=== PATIENT | female | born 1970 | race Caucasian/White ===

== ENCOUNTER → 2021-04-23 08:45 | Outpatient (CLI) | payer OTHER, SELFPAY ==
--- NOTE | ~2021-04-23 | XR_ITS ---
EXAMINATION: XR knee LT 3V DATE: 04/23/2021 09:08 INDICATION: Left knee pain. TECHNIQUE: 3 views of left knee including standing views were obtained. COMPARISON: None. FINDINGS: Bone alignment is normal. No fracture. There is mild osteoarthritis of medial and patellofe moral compartments characterized by tiny marginal osteophytes. No joint space narrowing. No knee join t effusion. There is heterotopic ossification lateral to lateral femoral condyle. IMPRESSION: 1. Mild left knee osteoarthritis. Reviewed, dictated and finalized at location B. TE[employer] SUPER[employer]OR [employer]
== END ==
PROVIDERS: PCP Family Medicine; Visit Provider Nurse Practitioner Family
DX: M17.12 Unilateral primary osteoarthritis, left knee (principal)
CPT/HCPCS: 73562

== ENCOUNTER 2021-09-04 15:57 | Outpatient (CLI) | payer OTHER, SELFPAY ==
--- NOTE | 2021-09-04 16:15 | ECG_ITS ---
Measurements Intervals [place] Rate: 60 P: 42 OH: 157 QRS: 21 QRSD: 86 T: 42 QT: 395 QTc: 395 Interpretive Statements SINUS RHYTHM BASELINE WANDER- I, II, AVR, AVL, AVF, V1-V6 NORMAL ECG Electronically Signed On 09-04-2021 19:01:39 CDT by Arthur Borden D.O.
[2021-09-04 16:16] LABS: Basophils Percent Auto 0.5 % (0.2-1.2); Eosinophils Absolute Auto 0.1 K/mm3 (0-0.3); Eosinophils Percent Auto 1.3 % (0-4.4); Hematocrit 43.3 % (37.0-47.0); Hemoglobin 14.7 g/dL (12.0-15.0); Immature Granulocyte Absolute 0.01 K/mm3 (0.00-0.031); Immature Granulocyte Percent A 0.2 % (0-0.5); Lymphocytes Absolute Auto 2.23 K/mm3 (0.9-3.2); Lymphocytes Percent Auto 36.7 % (18.3-44.2); Mean Corpuscular HGB Conc 33.9 g/dl (32-36); Mean Corpuscular Hemoglobin 31.8 pg (26-34); Mean Corpuscular Volume 93.7 fl (80-100); Mean Platelet Volume 10.4 fl (7.4-10.4); Monocytes Absolute Auto 0.5 K/mm3 (0.1-0.6); Monocytes Percent Auto 7.7 % (2.6-8.5); Neutrophils Absolute Auto 3.3 K/mm3 (1.3-6.7); Neutrophils Percent Auto 53.6 % (45.5-73.1); Platelet Count Result 264 k/mm3 (150-375); Red Blood Count 4.62 M/mm3 (4.2-5.4); Red Cell Distribution Width 13.4 % (11.5-14.5); White Blood Count 6.1 K/mm3 (4.5-10.0)
[2021-09-04 16:32] LABS: Anion Gap 4 mmol/L (8-16); Blood Urea Nitrogen 18 mg/dL (7-17); Calcium 9.7 mg/dL (8.4-10.2); Carbon Dioxide 26 mmol/L (22-30); Chloride 104 mmol/L (98-107); Estimated Glomerular Filt Rate > 60; Glucose 98 mg/dL (65-110); Potassium 4.5 mmol/L (3.4-5.0); Sodium 134 mmol/L (137-145)
== END 2021-09-04 15:58 | disposition home or self-care (01) ==
PROVIDERS: PCP Family Medicine; Visit Provider Nurse Practitioner Family
DX: M25.562 Pain in left knee (principal); R03.0 Elevated blood-pressure reading, without diagnosis of hypertension
CPT/HCPCS: 36415; 80048; 85025; 93005

== ENCOUNTER 2021-09-06 01:02 | Day surgery (SDC) | payer OTHER, SELFPAY ==
[2021-09-02 10:09] VITALS: BMI 34.7
--- NOTE | 2021-09-02 10:16 | PC.NURSE ---
Report to the Outpatient Waiting Room, entrance under the green pavilion located off [facility], at time _1000_ on date _09-06-21_. OR Time: _1200__. - You and your visitor will be asked a series of questions to screen for COVID 19 for your protection. - Only one visitor is allowed at this time. - The patient visitor is requested to leave or wait in car when not with patient. - A mask is required within the hospital. Patients may have clear liquids (water, carbonated beverages, clear teas, apple juice) until 3 hours prior to surgery with a maximum of 20 ounces. - No food from midnight until time of surgery Take the following medications with a SIP of water the morning of surgery: None Medications to discontinue per physician Date to take last dose Please no make-up, nail welsh, hairspray, perfume, deodorant, or body powder the day of surgery. No jewelry (including any body piercings) or valuables the day of surgery, leave them at home. Please take a shower or bath the night before, or the morning of, surgery with an antibacterial soap. Wear comfortable, loose fitting clothing. Children are encouraged to wear pajamas. - Jewelry must be removed prior to entering the operating room. Rings and piercings that are not removed may be cut off. - The hospital will not accept responsibility for valuables. - Please leave all valuables, including medications, at home the day of surgery. If you are going home after surgery, a licensed local company hazmat driver must drive you home. - NO public transportation without another adult. - We recommend that an adult stay with you for 24 hours following discharge. - We also recommend that you do not drive, make important decision, drink alcoholic beverages, or take any drugs that were not prescribed by your health care provider for at least 24 hours after your discharge time. Follow any additional instructions given to you from your surgeon. If you or anyone in your household have experienced Covid symptoms in the past week, please notify your surgeon or the nurse liaison at the phone number below for possible testing. Telephone instructions given to __None and asked if any additional questions and then verbalized understanding. Patient advised to call surgeon office or pre surgery nurse liaison [phone] if any additional questions.
[2021-09-06] VITALS (7 sets, daily range): BP systolic 136–174; BP diastolic 74–99; PULSE 54–77; RESP 12–20; TEMP 36.4; O2SAT 99–100
--- NOTE | ~2021-09-06 | XR_ITS ---
EXAMINATION: XR surgery orthopedic DATE: 09/06/2021 12:35 INDICATION: Left patella subluxation. TECHNIQUE: 2 views of left knee were obtained. COMPARISON: Left knee radiographs 04/23/2021 FINDINGS: Bone alignment is normal. No fracture. There is mild osteoarthritis of medial and patellofe moral compartments. There is a radiopaque marker lateral to lateral femoral condyle. IMPRESSION: 1. Mild left knee osteoarthritis. Reviewed, dictated and finalized at location A.
--- NOTE | 2021-09-06 07:14 | WPDHPUPDATE1 ---
History and Physical Update Update Date/Time: 09/06/21 07:14 History and Physical has been reviewed, including an updated exam of the patient. There are NO changes in the patient's condition. Risks, benefits, and alternatives have been discussed and questions answered. Patient agrees to proceed with procedure.
[2021-09-06] MEDS: CELECOXIB 200 MG CAPSULE PO (07:24)
[2021-09-06] MEDS: ACETAMINOPHEN 500 MG TABLET 1000 MG PO (07:24)
[2021-09-06] MEDS: LACTATED RINGERS 1,000 ML 30 ML IV CONT ×2 (08:00→13:04)
--- NOTE | 2021-09-06 08:07 | P.PNAN_ITS ---
Anes - Initial Pre Proc Eval Procedure: Operation Date: 09/06/21 09:00 Proposed Procedures p Left Knee Arthroscopy, with Medial Patellofemoral Ligament Reconstruction - Marcel Jacobsen MD Date/Time: 09/06/21 08:07 Surgeon: Marcel Jacobsen MD Pre Op Diagnosis: lt knee patellar subluxation, tear medial patellar Patient Data Age: 51 Gender: F Height: 1.75 m Weight: 104.8 kg Allergies Allergy/AdvReac Type Severity Reaction Status Date / Time No Known Allergies Allergy Verified 09/06/21 07:21 Home Medications Medication Instructions Recorded Confirmed Type estradiol 1 mg tablet 1 mg PO DAILY 08/18/19 09/06/21 History chlorhexidine gluconate 4 % 1 applic topical ONCE #237 mL 09/02/21 Rx topical liquid (Hibiclens) Patient hx anesthesia problems: none Family hx anesthesia problems: none Results Review: All pre-operative results and documents have been reviewed as part of the pre- operative evaluation. PMFSH Past Medical History Medical History Weight gain Family History Family History Father Hypertension Family history of coronary artery disease Mother Hypertension Cerebrovascular accident Family history of coronary artery disease Grandparent Family history of malignant neoplasm of uterus Other Heart disease Kidney disorder Social History Social History (Updated 08/30/21 @ 10:39 by Eri Lassiter MA) Years smoked: 10 Smoking status: Current every day smoker Tobacco type: cigarettes Smoking end date: 08/30/21 Alcohol intake: current Drinks per week: 2 Substance use: never Living arrangements: with family Gender identity (if verbalized by the patient): Female Spiritual care concerns: No Anes - Eval Final PreProcedure Day of Procedure 09/06/21 08:07 Patient weight: obese Heart: regular rate and rhythm Lungs: clear to auscultation Airway: Mallampati scale class II Neurological: alert and oriented Last oral intake: >/= 8 hours ASA classification: II Emergent: no Anesthetic plan: proceed Anesthesia type and monitoring: general LMA and standard monitoring Results Review: All pre-operative results and documents have been reviewed as part of the pre- operative evaluation. Informed Consent: The patient's anesthetic plan and its attendant risks and benefits were discussed with the patient/family/POA. Questions were solicited and answers provided to the satisfaction of the patient/family/POA.
[2021-09-06] MEDS: ceFAZolin 2 GM/D5W 50 ML 2 GM/50 ML BAG IVPB (09:47)
[2021-09-06] MEDS: BUPIVACAINE HCL 0.5% PF 30 ML VIAL INFILTRATE (11:11)
--- NOTE | 2021-09-06 13:04 | W.PM.PROC2 ---
Procedure Note - Detailed Date of Procedure 09/06/21 Pre-op Diagnosis lt knee patellar subluxation, tear medial patella femoral ligament Post-op Diagnosis Other (SAME WITH LEFT MEDIAL AND LATERAL MENISCUS TEAR) Procedure Performed LEFT KNEE SCOPE with MEDIAL PATELLO FEMORAL LIGAMENT RECONSTRUCTION Surgeon Marcel Jacobsen MD Anesthesia General Description of Procedure PATIENT WAS TAKEN TO THE OR. THE LEFT LEG WAS PREPPED AND DRAPED STERILE. TROCARS WERE PLACED IN THE USUAL FASHION. CAMERA WAS INTRODUCED. THERE WAS CHONDROMALACIA TO THE PATELLA FEMORAL JOINT. THERE WAS A LOT OF SYNOVITIS IN ALL COMPARTMENTS. THE MEDIAL COMPARTMENT SHOWED CHONDROMALACIA TO THE MEDIAL FEMORAL CONDYLE. A SHAVER WAS USED TO PREFORM A CHONDROPLASTY. THERE WAS A COMPLEX MEDIAL MENISCUS TEAR. THE TEAR WAS RESECTED WITH A BITER AND A SHAVER DOWN TO A SMOOTH BASE. ABOUT 15% OF THE MENISCUS WAS REMOVED. THE ACL WAS INTACT. THE LATERAL MENISCUS WAS TORN AT THE MID SECTION. THE TEAR WAS RESECTED. THE LAT COMPARTMENT HAD MINIMAL CHONDROMALACIA AT THE LATERAL PLATEAU. CHONDROPLASTY WAS PREFORMED. A SYNOVECTOMY WAS PREFORMED WELL. THE PATELLO FEMORAL JOINT UNDERWENT CHONDROPLASTY. THERE WAS GRADE 3 CHONDROMALACIA ON THE TROCHLEA AND PART OF THE PATELLA. SYNOVECTOMY WAS PREFORMED IN THE SUPERIOR MEDIAL COMPARTMENT. THE ARTHROSCOPIC INSTRUMENTATION WAS REMOVED. NEXT AN INCISION WAS MADE JUST MEDIAL TO THE MEDIAL BOARDER OF THE PATELLA DOWN TO THE MEDIAL CORTEX OF THE PATELLA. 2 DRILL HOLE WERE MADE AT THE SUPERIOR POLE AND MID PATELLA RESPECTIVELY TO ACCEPT 2, 3.5 SWIVEL LOCK ARTHREX ANCHORS BOTH ATTACHED TO 2 SEPARATE ARMS OF THE ALLOGRAFT AND A TIGHT ROPE BUTTON ATTACHED TO THE GRAFT/TIGHTROPE SYSTEM. USING FLUOROSCOPY A POINT NEAR BLUMENSAAT'S LINE WAS IDENTIFIED. A GUIDE PIN WAS PASSED FROM THE MEDIAL CORTEX TO THE LATERAL CORTEX. A CANNULATED DRILL WAS PASSED OVER THE GUIDE PIN. THE TIGHTROPE SYSTEM WAS TUNNELED UNDER THE SUBCUTANEOUS TISSUE AND SUPERFICIAL TO THE FASCIA. THE SUTURES WERE PASSED THROUGH THE SLOTTED GUIDE PIN FROM THE MEDIAL CORTEX AND OUT THE LATERAL CORTEX. THE ENDO BUTTON WAS FLIPPED AND THE TIGHTROPE SYSTEM WAS TENSIONED WITH THE KNEE IN 30 DEG OF FLEXION. THERE WAS GOOD STABILITY WITH PASSIVE MOTION. THE TENSION WAS GOOD AND THERE WAS GOOD SMOOTH ROM THROUGHOUT. THE WOUNDS WERE WASHED WITH SALINE SOLUTION. THE LARGER WOUNDS WERE APPROXIMATED WITH 2-0 VICRYL AND 3-0 STRATAFIX. THE ARTHROSCOPIC WOUND WERE APPROXIMATED WITH 4-0 NYLON THE WOUNDS WERE APPROXIMATED WITH 4.0 NYLON. STERILE DRESSING WAS APPLIED. PATIENT WAS EXTUBATED. Estimated Blood Loss 20 Complications No immediate complications Condition Stable Disposition PACU
== END 2021-09-06 15:25 | disposition home or self-care (01) ==
PROVIDERS: PCP Family Medicine; Visit Provider Orthopaedic Surgery
PROC: (CPT 29870; principal; 2021-09-06 09:00)
DX: S83.012A Lateral subluxation of left patella, initial encounter (principal); S76.112A Strain of left quadriceps muscle, fascia and tendon, initial encounter; S83.232A Complex tear of medial meniscus, current injury, left knee, initial encounter; S83.282A Other tear of lateral meniscus, current injury, left knee, initial encounter; M65.862 Other synovitis and tenosynovitis, left lower leg; M22.42 Chondromalacia patellae, left knee; W01.0XXA Fall on same level from slipping, tripping and stumbling without subsequent striking against object, initial encounter; F17.210 Nicotine dependence, cigarettes, uncomplicated; E66.9 Obesity, unspecified; Z68.34 Body mass index [BMI] 34.0-34.9, adult
CPT/HCPCS: 29880; 27427; A9270; C1713; J0690; J1170; J2250; J2704; J3010; J7120

== ENCOUNTER → 2023-01-27 10:19 | Outpatient (CLI) | payer OTHER, SELFPAY ==
--- NOTE | ~2023-01-27 | MM_ITS ---
EXAMINATION: MM scrn henny implant BI w imani HISTORY: Screening mammogram TECHNIQUE: Craniocaudal and mediolateral oblique 3-D tomosynthesis images with implant displacement a nd synthetic 2-D images were generated. Craniocaudal and mediolateral oblique views of the breasts wi thout implant displacement were obtained using full field digital mammography. CAD analysis was submi tted and interpreted. COMPARISON: 07/25/2015 BREAST PARENCHYMAL COMPOSITION: Breast composed of scattered areas of fibroglandular density FINDINGS: There are bilateral subpectoral breast implants. There is no evidence of suspicious mass, c alcification, or architectural distortion to suggest malignancy in either breast. There has been no s uspicious interval change. IMPRESSION: 1. No mammographic evidence of malignancy. 2. Recommend routine screening mammography in one year. BI-RADS Category 1: Negative Reviewed, dictated and finalized at location A.
== END ==
PROVIDERS: PCP Family Medicine; Visit Provider Nurse Practitioner Obstetrics & Gynecology
DX: Z12.31 Encounter for screening mammogram for malignant neoplasm of breast (principal)
CPT/HCPCS: 77063; 77067

== ENCOUNTER 2024-01-27 15:22 | Outpatient (CLI) | payer OTHER, SELFPAY ==
--- NOTE | ~2024-01-27 | MR_ITS ---
EXAMINATION: MR knee LT wo con DATE: 01/27/2024 15:57 INDICATION: Left knee pain. TECHNIQUE: Magnetic resonance imaging (MRI) of the left knee was performed without intravenous contra st. Sequences included axial PD-weighted FS FSE, coronal PD-weighted FSE and PD-weighted FS FSE, sagi ttal PD-weighted FSE, and sagittal T2-weighted FS FSE. COMPARISON: Left knee radiographs 10/01/2023 FINDINGS: Medial compartment: There is a complex tear involving posterior horn of medial meniscus. Medial compartment cartilage is normal. Lateral compartment: Lateral meniscus is normal. There is cartilage surface irregularity of tibial condyle and femoral con dyle. Patellofemoral compartment: There is shallow partial-thickness cartilage loss of patellar lateral facet. There is shallow partial -thickness cartilage loss of central trochlea. Ligaments and tendons: Anterior cruciate ligament demonstrates lax fibers and increased T2-weighted signal intensity. Cooler Deliverer ior cruciate ligament is intact. There are surgical tracts in medial patella. There is thickening of the medial retinaculum. There is a tract in the distal femur from the proximal attachment of the medi al collateral ligament to the proximal attachment of the fibular collateral ligament. There is postsu rgical artifact in the area of the fibular collateral ligament. There is mild patellar tendinopathy. Fluid: There is a small knee joint effusion. There is a moderate-sized Miller's cyst. IMPRESSION: 1. Mild chondrosis of lateral and patellofemoral compartments. 2. Tear of medial meniscus. 3. At least partial tear of anterior cruciate ligament. 4. Small knee joint effusion. 5. Moderate-sized Miller's cyst. Reviewed, dictated and finalized at location A.
== END 2024-01-27 15:23 | disposition home or self-care (01) ==
PROVIDERS: PCP Family Medicine; Visit Provider Nurse Practitioner Family
DX: M22.2X2 Patellofemoral disorders, left knee (principal); S83.242A Other tear of medial meniscus, current injury, left knee, initial encounter; S83.512A Sprain of anterior cruciate ligament of left knee, initial encounter; X58.XXXA Exposure to other specified factors, initial encounter; M25.462 Effusion, left knee; M71.22 Synovial cyst of popliteal space [Baker], left knee
CPT/HCPCS: 73721

== ENCOUNTER 2024-03-15 01:26 | Day surgery (SDC) | payer OTHER, SELFPAY ==
[2024-03-04 10:38] VITALS: BMI 27.3
--- NOTE | 2024-03-04 10:39 | PC.NURSE ---
Report to the Outpatient Waiting Room, entrance under the green pavilion located off [facility], at time _1130_ on date _[id number]_. Planned Procedure Time: _130pm_.? Time changes happen often and if your time is changed the preop area will call you the afternoon before. - You and your visitor will be asked to self-screen and do not enter if you have any COVID symptoms. Please call surgeon if you need to reschedule. - A mask is optional within the hospital at this time. Patients may have clear liquids (water, carbonated beverages, clear teas, apple juice) until 3 hours prior to surgery with a maximum of 20 ounces. - No food from midnight until time of surgery and no smoking. This includes no chewing gum, candy or mints. Take only the following medications with a SIP of water on the morning of surgery: None DO NOT STOP ANY OF YOUR OTHER PRESCRIPTION MEDICATIONS PRIOR TO SURGERY EXCEPT THE FOLLOWING Medications to discontinue per physician ___Vitamins____ Date to take last orpv___[id number]____ Please no make-up, nail malay, hairspray, perfume, deodorant, or body powder the day of surgery.? No jewelry (including any body piercings) or valuables the day of surgery, leave them at home.? Please take a shower or bath the night before, or the morning of, surgery with an antibacterial soap.? Wear comfortable, loose fitting clothing.? - Jewelry must be removed prior to entering the operating room.? Rings and piercings that are not removed may be cut off. - The hospital will not accept responsibility for valuables.? - Please leave all valuables, including medications, at home the day of surgery. If you are going home after surgery, a licensed horse and wagon driver must drive you home.? - NO public transportation without another adult if you receive anesthesia. - We recommend that an adult stay with you for 24 hours following discharge. - We also recommend that you do not drive, make important decision, drink alcoholic beverages, or take any drugs that were not prescribed by your health care provider for at least 24 hours after your discharge time. Follow any additional instructions given to you from your surgeon. Telephone instructions given to _Bonnie__and asked if any additional questions and then verbalized understanding. Patient advised to call surgeon office or pre surgery nurse liaison [phone] if any additional questions.
[2024-03-15] VITALS (7 sets, daily range): BP systolic 126–152; BP diastolic 59–84; PULSE 50–75; RESP 11–16; TEMP 36.4–36.6; O2SAT 97–100
--- NOTE | 2024-03-15 10:41 | WPDHPUPDATE1 ---
History and Physical Update Update Date/Time: 03/15/24 10:41 History and Physical has been reviewed, including an updated exam of the patient. There are NO changes in the patient's condition. Risks, benefits, and alternatives have been discussed and questions answered. Patient agrees to proceed with procedure.
[2024-03-15] MEDS: LACTATED RINGERS 1,000 ML 30 ML IV CONT ×2 (12:30→15:07)
[2024-03-15] MEDS: CELECOXIB 200 MG CAPSULE PO (12:30)
[2024-03-15] MEDS: ACETAMINOPHEN 500 MG TABLET 1000 MG PO (12:30)
--- NOTE | 2024-03-15 13:40 | WPDANESEPPF ---
Anes - Initial Pre Proc Eval Procedure: Operation Date: 03/15/24 13:30 Proposed Procedures p Left Knee Arthroscopy - Marcel Jacobsen MD Date/Time: 03/15/24 13:40 Surgeon: Marcel Jacobsen MD Pre Op Diagnosis: Medial Meniscus Tear Lt Knee Patient Data Age: 53 Gender: F Height: 1.75 m Weight: 88.6 kg Last Vital Signs Temp 36.6 C 03/15/24 12:30 Pulse 75 03/15/24 12:30 Resp 14 03/15/24 12:30 BP 152/84 H 03/15/24 12:30 Pulse Ox 97 03/15/24 12:30 O2 Del Method Room Air 03/15/24 12:30 Allergies Allergy/AdvReac Type Severity Reaction Status Date / Time No Known Allergies Allergy Verified 03/15/24 12:53 Home Medications Medication Instructions Recorded Confirmed Type cholecalciferol (vitamin D3) 50 50 mcg PO DAILY 03/04/24 03/07/24 History mcg (2,000 unit) capsule (Vitamin D3) estradiol 1 mg tablet 5 mg PO DAILY 03/04/24 03/07/24 History vitamin B complex 1 tablet PO DAILY 03/04/24 03/07/24 History chlorhexidine gluconate 4 % 1 applic topical ONCE #236 mL 03/14/24 Rx topical liquid (Hibiclens) hydrocodone 5 mg-acetaminophen 325 1 tablet PO Q12H PRN pain #20 tabs 03/15/24 Rx mg tablet Patient hx anesthesia problems: none Family hx anesthesia problems: none Results Review: All pre-operative results and documents have been reviewed as part of the pre-operative evaluation. [facility] Past Medical History Medical History Acute bacterial pharyngitis Adult BMI 34.0-34.9 kg/sq m Adult BMI 36.0-36.9 kg/sq m BMI 27.0-27.9,adult Degenerative joint disease of knee Edema of knee Instability of knee joint Left knee pain Left medial knee pain Lower extremity surgery planned Sinusitis Skin tags, multiple acquired Weight gain Surgical History Surgical History S/P left knee arthroscopy w/ MPFL reconstruction DOS 09/06/21 Family History Family History Father Hypertension Family history of coronary artery disease Mother Hypertension Cerebrovascular accident Family history of coronary artery disease Grandparent Family history of malignant neoplasm of uterus Sibling No problems noted. Other Heart disease Kidney disorder Social History Social History Years smoked: 10 Smoking status: Former smoker Tobacco type: cigarettes Second hand tobacco smoke exposure: Yes Smoking end date: 03/04/23 Additional smoking assessment comments: pt smokes 1 pack a month Alcohol intake: current Drinks per week: 2 Substance use: never Substance use type: does not use Living arrangements: with family Occupation/Education: occupation Additional occupation/education comments: [employer] Gender identity (if verbalized by the patient): Female Spiritual care concerns: No Anes - Eval Final PreProcedure Day of Procedure 03/15/24 13:40 Patient weight: overweight Heart: regular rate and rhythm Lungs: clear to auscultation Airway: Mallampati scale class II Neurological: alert and oriented Last oral intake: >/= 8 hours ASA classification: II Emergent: no Anesthetic plan: proceed Anesthesia type and monitoring: general LMA and standard monitoring Results Review: All pre-operative results and documents have been reviewed as part of the pre-operative evaluation. Informed Consent: The patient's anesthetic plan and its attendant risks and benefits were discussed with the patient/family/POA. Questions were solicited and answers provided to the satisfaction of the patient/family/POA.
[2024-03-15] MEDS: ceFAZolin 2 GM/D5W 50 ML 2 GM/50 ML BAG IVPB (13:45)
[2024-03-15] MEDS: BUPIVACAINE/EPINEPHRINE 0.5% 50 ML VIAL 30 ML INFILTRATE (14:16)
--- NOTE | 2024-03-15 15:07 | W.PM.PROC2 ---
Procedure Note - Detailed Date of Procedure 03/15/24 Pre-op Diagnosis Medial Meniscus Tear Lt Knee Post-op Diagnosis Same Procedure Performed LEFT KNEE SCOPE Surgeon Marcel Jacobsen MD Anesthesia General Description of Procedure PATIENT WAS TAKEN TO THE OR. LEFT LEG WAS PREPPED AND DRAPED STERILE. TROCARS WERE PLACED IN THE USUAL FASHION. CAMERA WAS INTRODUCED. THERE WAS CHONDROMALACIA TO THE PATELLA FEMORAL JOINT. THERE WAS A LOT OF SYNOVITIS IN ALL COMPARTMENTS. THE MEDIAL COMPARTMENT SHOWED MILD CHONDROMALACIA TO THE MEDIAL FEMORAL CONDYLE. A SHAVER WAS USED TO PREFORM A CHONDROPLASTY. THERE WAS A SMALL COMPLEX MEDIAL MENISCUS TEAR. THE TEAR WAS RESECTED WITH A BITER AND A SHAVER DOWN TO A SMOOTH BASE. THE ACL WAS INTACT. THE LATERAL MENISCUS WAS TORN IN THE MID HORN AND POSTERIOR ROOT. LATERAL COMPARTMENT HAD MILD GRADE 2 CHONDROMALACIA. CHONDROPLASTY WAS PREFORMED. A SYNOVECTOMY WAS PREFORMED WELL. THE PATELLO FEMORAL JOINT UNDERWENT CHONDROPLASTY. THERE WAS GRADE 3 CHONDROMALACIA IN PART OF THE TROCHLEA AND PART OF THE PATELLA. SYNOVECTOMY WAS PREFORMED IN THE SUPERIOR MEDIAL COMPARTMENT. THE PATELLA WAS TRACKING WELL WITH NO TILT. A LATERAL SHIFT OF THE PATELLA IN COMPLETE KNEE EXTENSION WAS PREFORMED UNDER DIRECT VISUALIZATION. THERE WAS NO LATERAL EXCURSION BEYOND THE LATERAL FACET. THE PATELLA WAS STABLE. THE MEDIAL RETINACULUM WAS TAUT. THE WOUNDS WERE APPROXIMATED WITH 4.0 NYLON. STERILE DRESSING WAS APPLIED. PATIENT WAS EXTUBATED. Estimated Blood Loss -5.0 Complications No immediate complications Condition Stable Disposition PACU
[2024-03-15] MEDS: oxyCODONE HCL (*CRX) 5 MG TAB IR PO (16:08)
== END 2024-03-15 16:47 | disposition home or self-care (01) ==
PROVIDERS: PCP Family Medicine; Visit Provider Orthopaedic Surgery
PROC: (CPT 29870; principal; 2024-03-15 13:30)
DX: M23.332 Other meniscus derangements, other medial meniscus, left knee (principal); M23.362 Other meniscus derangements, other lateral meniscus, left knee; M65.862 Other synovitis and tenosynovitis, left lower leg; M94.262 Chondromalacia, left knee; F17.210 Nicotine dependence, cigarettes, uncomplicated
CPT/HCPCS: 29880; A9270; J0690; J1100; J2003; J2250; J2371; J2405; J2704; J3010; J7120

== ENCOUNTER 2024-08-27 08:23 | Outpatient (CLI) | payer OTHER, SELFPAY ==
--- NOTE | ~2024-08-27 | MM_ITS ---
EXAMINATION: MM scrn henny implant BI w imani HISTORY: Screening mammogram TECHNIQUE: Craniocaudal and mediolateral oblique 3-D tomosynthesis images with implant displacement a nd synthetic 2-D images were generated. Craniocaudal and mediolateral oblique views of the breasts wi thout implant displacement were obtained using full field digital mammography. CAD analysis was submi tted and interpreted. COMPARISON: Comparison to multiple prior studies sequentially, with oldest reviewed study dated 07/24. BREAST PARENCHYMAL COMPOSITION: Not dense: There are scattered areas of fibroglandular density. FINDINGS: There is no evidence of suspicious mass, calcification, or architectural distortion to sugg est malignancy in either breast. There has been no suspicious interval change. IMPRESSION: 1. No mammographic evidence of malignancy. 2. Recommend routine screening mammography in one year. BI-RADS Category 1: Negative Reviewed, dictated and finalized at location B.
== END 2024-08-27 08:24 | disposition home or self-care (01) ==
LOC: MICIMG 08:26
PROVIDERS: PCP Family Medicine; Visit Provider Nurse Practitioner
DX: Z12.31 Encounter for screening mammogram for malignant neoplasm of breast (principal)
CPT/HCPCS: 77063; 77067